=== PATIENT | male | born 1960 | race Caucasian/White ===

== ENCOUNTER → 2019-03-25 15:16 | Outpatient (CLI) | payer OTHER, SELFPAY ==
--- NOTE | 2019-03-25 15:27 | RAD_ITS ---
STUDY: X-RAY - PELVIS AND RIGHT HIP REASON FOR EXAM: Male, 58 years old. Hip pain without injury TECHNIQUE: 2 views of the pelvis and hip. COMPARISON: None. FINDINGS: There is a non-specific bowel gas pattern. Vascular calcifications. Normal bilateral iliac wings, sacroiliac joints and visualized sacrum. Normal bilateral superior and inferior pubic rami. Normal pubic symphysis. Normal bilateral ischial tuberosities. Normal visualized femoral head. Normal acetabulum. Normal hip joint. RAD/HIP, UNI W/ Pelvis 2-3 Views IMPRESSION: Normal x-ray examination of the pelvis and hip. Electronically Signed: Mike Murillo MD at 16:24 EDT Tel , Service support ,
== END ==
PROVIDERS: Referring Provider Nurse Practitioner Family; Visit Provider Nurse Practitioner Family
DX: M25.551 Pain in right hip (principal)
CPT/HCPCS: 73502